=== PATIENT | female | born 1965 | race Caucasian/White ===

== ENCOUNTER 2016-09-11 11:29 | Day surgery (SDC) | payer OTHER ==
[~2016-09-11] VITALS: Ht 170.2 cm; Wt 83.0 kg
[2016-09-11] VITALS (7 sets, daily range): BP systolic 112–129; BP diastolic 67–82; PULSE 67–100; RESP 13–18; O2SAT 97–100
[2016-09-11] MEDS ORDERED: Ondansetron 2 mg/mL 2 mL Inj ONE (11:30)
[2016-09-11] MEDS ORDERED: MetoCLOpramide 5 mg/mL 2 mL Inj ONE (11:30)
[2016-09-11] MEDS ORDERED: Propofol 10,000 mCg/mL 20 mL Inj ONE (11:30)
[2016-09-11] MEDS ORDERED: Dexamethasone 4 mg/mL Inj ONE (11:30)
[2016-09-11] MEDS: Lactated Ringer's 1,000 ML IV SCH ×2 (11:35→12:30)
--- NOTE | 2016-09-11 13:05 | PCM.HPANE ---
Patient Data Date of Service: Sep 11, 2016 Surgeon Admitting Provider: Attending Provider:Morro Johnson MD Primary Care Physician:Yudi Jones Other Provider:Naina Corea Anesthesia Reason for Visit Abnormal Uterine And Vaginal Bleeding, Unspecified Ht/WT & BMI Height (Feet): 5 Height (Inches): 7.00 Weight (Kilograms): 83.0 Body Mass Index 28.00 Allergies Coded Allergies: Sulfa (Sulfonamide Antibiotics) (Verified Allergy, Severe, HEMATEMISIS, 09/07/16) Past Anesthesia History Anesthesia History: Positive for:: Anesthesia Reactions (NAUSEA), Denies:: Fam Anesthesia Reaction, Fam Malignant Hypertherm, Malignant Hyperthermia Diabetes History Hx Diabetes?: No MRSA MRSA: No Medications Hypertension Medication: No Home Meds Incl Beta Harpreet: No History History of ENT Problems?: No HEENT History: Denies:: Abnormal Airway Cataracts Difficult Intubation Dysphagia Glaucoma Hearing Problem Sinus Problem TMJ Denture Type: None Teeth Condition: Within Normal Limits Hx of Heart Problems?: No Cardiovascular History: Denies:: Chest Pain Hx of Respiratory Problem?: No Respiratory History: Denies:: Asthma Hx Neurologic Problems?: No Neurological History: Denies:: CVA Seizures TIA Hx of GI Problems?: Yes Gastrointestinal History: Denies:: Gastroesphageal Reflux Hx of Problems?: No Female Hx: Denies:: Currently Skin History: Denies:: History Skin Disorders? Pressure Ulcers Hx Musculoskeletal Problems?: No Hx of Psycho/Social Problems?: No Hx Surgeries?: Yes (TONSILS 1993) Hx Any Other Health Problems?: No Other History: Denies:: Cancer Endocrine Disease Hospitalization Thyroid Disease History Blood Transfusions: Positive for:: Accept Blood Products? Denies:: Blood Transfusions Hx Diabetes: No Hx Alcohol Use: YesAlcoholic Drinks Per Day: occasionalHx Substance Use: No Smoking Status: Never Smoker (second-hand smoke exposure during childhood) Have You Smoked inLast 12 mo: No Stop/Bang Treated for Sleep Apnea?: No Do You Have a CPAP Machine?: No S-Snoring: Do You Snore Loudly: No T-Tired: feel tired, fatigued: Yes O-Obsered: Observed not breath: No P-Blood Pressure: treated: No B- Body Mass Index > 35 kg/m2: No A- Age over 50: No N- Neck Large Circumference: No G- Gender Male: No LU Total Score: 1 LU Risk Assessment: Low Risk, <3 Yes Risk Assessment Category Category 1A: Patient has history of documented sleep apnea, and HAS NOT received any narcotic, sedative or anesthesia administration during this stay. Category 1B: Patient has history of documented sleep apnea, and HAS received any narcotic , sedative or anesthesia administration during this stay Category 2: Patient has SUSPECTED Obstructive Sleep Apnea, and HAS received any narcotic , sedative or anesthesia administration during this stay. Category 3: Patient has SUSPECTED Obstructive Sleep Apnea and HAS NOT received narcotic, sedative or anesthesia administration during this stay. Category 4: Outpatient in Procedural Areas with known sleep apnea or who screen positive for High Risk via the STOP/BANG questionnaire. Exam Exam Vital Signs Vital Signs Date Time Temp Pulse Resp B/P Pulse Ox O2 Delivery O2 Flow Rate FiO2 09/11/16 12:04 36.1 100 18 129/82 97 Room Air General Appearance: Alert, Oriented X3, Cooperative, No Acute Distress HEENT/AIRWAY: MP 2, Neck Movement (from), Mouth Opening (>3), Other (TMD>3) Lungs: Normal Air Movement Heart: Exam Unremarkable, Regular Rate/Rhythm, Normal S1, Normal S2, No Murmurs /Rubs/Gallops Meds/Labs/Diagnostics Admission Meds Current Medications Lactated Ringer's (Lr) 1,000 ml @ 120 mls/hr [id number] IV Last administered on t 11:35; Start 09/11/16 at 05:00; Stop 09/11/16 at 13:19 Plan Impression Patient chart reviewed, patient interviewed and anesthestic plan with risks, benefits, and alternatives discussed, and informed consent obtained. ASA Physical Status: ASA1 Normal Healthy Anesthetic Plan: GA Bene/Risks/Altern/Consents: Yes HP Complete Prior to Induction: Yes Boyd Armijo MD Sep 11, 2016 13:05
[2016-09-11] MEDS ORDERED: Lactated Ringer's 1,000 ML IV SCH (13:49)
[2016-09-11] MEDS ORDERED: Lactated Ringer's 500 ML IV PRN (13:49)
[2016-09-11] MEDS ORDERED: fentaNYL-PF 50 mCg/mL 2 mL Inj IVPUSH PRN (13:50)
[2016-09-11] MEDS ORDERED: Phenylephrine 10,000 mCg/mL Inj IVPUSH PRN (13:50)
[2016-09-11] MEDS ORDERED: Dexamethasone 4 mg/mL Inj IVPUSH PRN (13:50)
[2016-09-11] MEDS ORDERED: EPHEDrine Sulfate 50 mg/mL Inj IVPUSH PRN (13:50)
[2016-09-11] MEDS ORDERED: Ondansetron 2 mg/mL 2 mL Inj IVPUSH PRN ×2 (13:50→14:30)
[2016-09-11] MEDS ORDERED: MetoCLOpramide 5 mg/mL 2 mL Inj IVPUSH PRN (13:50)
[2016-09-11] MEDS ORDERED: HYDROmorphone 1 mg/mL Inj IVPUSH PRN (13:50)
[2016-09-11] MEDS ORDERED: oxyCODONE-Acetamin 5-325 mg Tablet PO PRN (14:30)
[2016-09-11] MEDS ORDERED: diphenhydrAMINE 25 mg Capsule PO PRN (14:30)
--- NOTE | 2016-09-11 14:31 | PCM.DIMED ---
Discharge Instructions Date of Service Sep 11, 2016 Dates of Hospitalization Diet Discharge Diet: No restrictions Activity Discharge Activity: No restrictions Call your provider Call your provider for: Fever or Chills, Shortness of breath, Bleeding, Chest pain, Vomitting, Excessive diarrhea, Weakness (unilateral) Patient Instructions Follow-up with PCP in: 2 weeks Morro Johnson MD Sep 11, 2016 14:31
--- NOTE | 2016-09-11 23:36 | OP ---
[address] [address] OPERATIVE REPORT PATIENT: YAIMA HICKMAN : 1965 MR#: [id number] ADMIT: 09/11/2016 JOB ID: [id number] DATE OF SURGERY: 09/11/2016 PROCEDURE: NovaSure endometrial ablation. PREOPERATIVE DIAGNOSIS(ES): Abnormal uterine bleeding. POSTOPERATIVE DIAGNOSIS(ES): Abnormal uterine bleeding. SURGEON: Morro Johnson MD. ANESTHESIA: Boyd Armijo MD, general. ESTIMATED BLOOD LOSS: 30 mL. ESTIMATED URINE OUTPUT: 100 mL. COMPLICATIONS: None. FINDINGS: Normal appearance of the vagina, perineum and the cervix. The uterus is retroverted, mobile, bulky, enlarged. INDICATION FOR THE PROCEDURE: The patient is 50-year-old para 2 who has been having abnormal uterine bleeding not responsive to hormonal treatment. She wanted to have minimally invasive procedure. We discussed NovaSure endometrial ablation. The patient agreed for endometrial ablation. Endometrial biopsy was benign in office. PROCEDURE: The patient was brought to the operating room, where she underwent general anesthesia without difficulty. The patient was placed in the dorsal lithotomy position using Evin stirrups. She was prepped and draped in usual surgical fashion. Time-out was performed verifying correct patient, correct procedure. Weighted speculum was placed into the vagina. The cervix was identified and grasped with a tenaculum. It was dilated using Hegar dilators to a size of 8 mm. The uterus was sounded prior to the procedure together with the cervical length, the sound showed 11 cm. Cavity assessment was done with a setting 6.5 cm for the length and 4.5 cm for the width but the cavity assessment failed. The followup assessment was setup twice with 6.5 for the length and different settings for the width. Two followup cavity assessments failed as well. The patient's uterus is retroverted and it has proven to be that the cavity of the uterus is just on upper level of the one which is acceptable for the device. After three attempts to observe the cavity and to start the ablation cycle the procedure was terminated. The results of the procedure were discussed with the patient. Alternative treatment options will be discussed during her followup visit in the office. MARY
== END 2016-09-11 23:59 | disposition home or self-care (01) ==
LOC: SAS 11:29
PROVIDERS: ATTEND Legal Medicine
DX: N93.9 Abnormal uterine and vaginal bleeding, unspecified (principal)
CPT/HCPCS: 58353; J1100; J1885; J2250; J2405; J2765; J7120